=== PATIENT | male | born 1970 | race Two or more races ===

== ENCOUNTER → 2016-08-15 | Outpatient (CLI) | payer BC ==
--- NOTE | 2016-08-16 11:56 | Diagnostic Imaging Report ---
Indication: COUGH Technique: Single AP view of the chest. Findings: Comparison: None. New densities left lung base. Right lung clear. The bones and extra pulmonary soft tissues, cardiomediastinal silhouette, pulmonary vasculature, and pleural surfaces are unremarkable. IMPRESSION: Subsegmental atelectasis versus scarring left lung base Otherwise negative.
== END | disposition home or self-care (01) ==
LOC: RAD 08-13 15:21
DX: R05 Cough (principal)
CPT/HCPCS: 71020